=== PATIENT | male | born 1940 | race Caucasian/White ===

== ENCOUNTER 2017-12-04 01:12 | Emergency (ER) | payer OTHER ==
[2017-12-04] MEDS ORDERED: NS 1,000 ML IV ONE (01:43)
[2017-12-04] MEDS ORDERED: ONDANSETRON 4 MG/2 ML VIAL IVP ONE (01:43)
--- NOTE | 2017-12-04 01:43 | EDPHY ---
H & P Stated Complaint: UPPER ABD PAIN @2030 Time Seen by Provider: 12/04/17 01:37 HPI/ROS: Chief Complaint: Abdominal pain HPI: 77-year-old male began having upper abdominal pain about 830 tonight. Pain is been constant. Some nausea no vomiting. He states he feels his abdomen is distended and bloated. Does have a history of some reflux disease but this feels a bit different. He also feeling quite gassy. No nausea vomiting or diarrhea. Has had some constipation. No fevers or chills. No chest pain or shortness of breath. Pain is about a 6/10. There are no aggravating or alleviating factors. No back pain. No urinary urgency or frequency. ROS: 10 systems were reviewed and were negative except those elements noted in the HPI. PMH: Hypertension Social History: No smoking, no alcohol, no recreational drug use Family History: non-contributory Physical Exam: Gen: Awake, Alert, No Distress HEENT: Nose: no rhinorrhea Eyes: PERRLA, EOMI Mouth: Moist mucosa Neck: Supple, no JVD Chest: nontender, lungs clear to auscultation Heart: S1, S2 normal, no murmur Abd: Soft, distended, moderate hyperactive bowel sounds, tenderness in the epigastrium and left upper quadrant reproducing his presenting complaint Back: no CVA tenderness, no midline tenderness Ext: no edema, non-tender Skin: no rash Neuro: CN II-XII intact, Sensation grossly intact, Strength 5/5 in bilateral upper and lower extremities - Personal History Current Tetanus Diphtheria and Acellular Pertussis (TDAP): Yes - Medical/Surgical History Hx Asthma: No Hx Chronic Respiratory Disease: No Hx Diabetes: No Hx Cardiac Disease: No Hx Renal Disease: Yes Hx Cirrhosis: No Hx Alcoholism: No Hx HIV/AIDS: No Hx Splenectomy or Spleen Trauma: No Other PMH: HTN, RENAL INSUF - Social History Smoking Status: Never smoked Constitutional: Initial Vital Signs Temperature (C) 36.4 C 12/04/17 01:16 Heart Rate 92 12/04/17 01:16 Respiratory Rate 16 12/04/17 01:16 Blood Pressure 192/99 H 12/04/17 01:16 O2 Sat (%) 93 12/04/17 01:16 O2 Delivery Mode Room Air Allergies/Adverse Reactions: No Known Allergies Allergy (Unverified 12/04/17 01:20) Home Medications: Medication Instructions Recorded Unobtainable 12/04/17 Medical Decision Making - Diagnostics Imaging Results: CT scan of the abdomen pelvis shows no acute process. There is no a bowel obstruction, the appendix is normal. There is mild/no gallbladder but there is no stranding. He does have some constipation. Study interpreted by Dr. Peace. ED Course/Re-evaluation: Laboratory evaluations show a leukocytosis. CT scan of the abdomen pelvis shows some constipation, no obstruction, no other acute processes. Mild sludge in the gallbladder but no stranding. He has not have any right upper quadrant tenderness. He is improved after IV medications including Toradol Zofran and initially some morphine. He is tolerating p.o.. Will discharge with follow-up with primary care physician, return for worsening symptoms. - Data Points Laboratory Results: Laboratory Results 12/04/17 01:30 12/04/17 01:30 12/04/17 12/04/17 01:30 01:30 WBC 14.51 10^3/uL H 10^3/uL (3.80-9.50) RBC 4.43 10^6/uL 10^6/uL (4.40-6.38) Hgb 13.0 g/dL L g/dL (13.7-17.5) Hct 39.8 % L % (40.0-51.0) MCV 89.8 fL fL (81.5-99.8) MCH 29.3 pg pg (27.9-34.1) MCHC 32.7 g/dL g/dL (32.4-36.7) RDW 15.3 % H % (11.5-15.2) Plt Count 194 10^3/uL 10^3/uL (150-400) MPV 11.1 fL fL (8.7-11.7) Neut % (Auto) 86.7 % H % (39.3-74.2) Lymph % (Auto) 9.0 % L % (15.0-45.0) [place] % (Auto) 3.7 % L % (4.5-13.0) Eos % (Auto) 0.1 % L % (0.6-7.6) Baso % (Auto) 0.1 % L % (0.3-1.7) Nucleat RBC Rel Count 0.0 % % (0.0-0.2) Absolute Neuts (auto) 12.58 10^3/uL H 10^3/uL (1.70-6.50) Absolute Lymphs (auto) 1.30 10^3/uL 10^3/uL (1.00-3.00) Absolute Monos (auto) 0.54 10^3/uL 10^3/uL (0.30-0.80) Absolute Eos (auto) 0.01 10^3/uL L 10^3/uL (0.03-0.40) Absolute Basos (auto) 0.02 10^3/uL 10^3/uL (0.02-0.10) Absolute Nucleated RBC 0.00 10^3/uL 10^3/uL (0-0.01) Immature Gran % 0.4 % % (0.0-1.1) Immature Gran # 0.06 10^3/uL 10^3/uL (0.00-0.10) Sodium 141 mEq/L mEq/L (135-145) Potassium 4.5 mEq/L mEq/L (3.3-5.0) Chloride 106 mEq/L mEq/L (97-110) Carbon Dioxide 23 mEq/l mEq/l (22-31) Anion Gap 12 mEq/L mEq/L (8-16) BUN 15 mg/dL mg/dL (7-23) Creatinine 1.1 mg/dL mg/dL (0.7-1.3) Estimated GFR > 60 Glucose 174 mg/dL H mg/dL (70-100) Calcium 9.2 mg/dL mg/dL (8.5-10.4) Total Bilirubin 0.5 mg/dL mg/dL (0.1-1.4) AST 33 IU/L IU/L (17-59) ALT 36 IU/L IU/L (21-72) Alkaline Phosphatase 70 IU/L IU/L (38-126) Total Protein 7.6 g/dL g/dL (6.3-8.2) Albumin 4.3 g/dL g/dL (3.5-5.0) Lipase 95 IU/L IU/L (23-300) Specimen Hemolysis 113 Medications Given: Discontinued Medications Sodium Chloride (Ns) 1,000 mls @ 0 mls/hr IV ONCE ONE; Wide Open PRN Reason: Protocol Stop: 12/04/17 01:44 Last Admin: 12/04/17 01:50 Dose: 1,000 mls Ketorolac Tromethamine (Toradol) 15 mg IVP EDNOW ONE Stop: 12/04/17 04:25 Last Admin: 12/04/17 04:27 Dose: 15 mg Morphine Sulfate (Morphine) 4 mg IVP ONCE ONE Stop: 12/04/17 01:44 Last Admin: 12/04/17 01:49 Dose: 4 mg Ondansetron HCl (Zofran) 4 mg IVP EDNOW ONE Stop: 12/04/17 01:44 Last Admin: 12/04/17 01:49 Dose: 4 mg Departure - Departure Disposition: Home, Routine, Self-Care Clinical Impression: Abdominal pain, Constipation Condition: Good Instructions: Acute Abdominal Pain (ED), Constipation (ED) Additional Instructions: Make sure to drink at least eight 8 oz glasses of water a day. You may take MiraLax daily according to package instructions. If you feel constipated drink 1/2 bottle of magnesium citrate. Wait 1-2 hours. If you do not have a bowel movement after that time drink the 2nd half of the bottle. If you continues to be constipated you may use a Fleet's enema, available over- the-counter. Follow up with primary care physician in 2-3 days for further evaluation. Return to the emergency department for persisting abdominal pain, nausea vomiting, fevers, chills, or any other concerns. Referrals: Kade Guan MD [Primary Care Provider] - As per Instructions
[2017-12-04 01:50] LABS: PLATELET COUNT 194 10^3/uL (150-400)
[2017-12-04] MEDS ORDERED: IOPAMIDOL (ISOVUE-300) 100 ML BTL ONE (02:06)
[2017-12-04] MEDS ORDERED: KETOROLAC 15 MG/1 ML SDV IVP ONE (04:24)
[2017-12-04 05:17] VITALS: BP 145/70
== END 2017-12-04 05:15 | disposition home or self-care (01) ==
DX: R10.9 Unspecified abdominal pain (principal); K59.00 Constipation, unspecified; E86.9 Volume depletion, unspecified
CPT/HCPCS: 74177; 96361; 96374; 96375; 99284; J1885; J2270; J2405; Q9967

== ENCOUNTER → 2017-12-24 | Outpatient (CLI) | payer OTHER | LOC: FIMAGING 09:01 | PROVIDERS: ATTEND Internal Medicine | DX: K21.9 Gastro-esophageal reflux disease without esophagitis (principal) | CPT/HCPCS: 78226; A9537 ==

== ENCOUNTER → 2018-02-03 | Outpatient (CLI) | payer OTHER | LOC: BMCIMAGING 08:57 | PROVIDERS: ATTEND Physician Assistant | DX: K80.20 Calculus of gallbladder without cholecystitis without obstruction (principal); R16.2 Hepatomegaly with splenomegaly, not elsewhere classified; I70.0 Atherosclerosis of aorta ==